=== PATIENT | female | born 1965 | race Caucasian/White ===

== ENCOUNTER 2017-02-04 23:22 | Emergency (ER) | payer OTHER ==
[~2017-02-04] VITALS: Ht 160 cm; Wt 68.0 kg
[2017-02-04] MEDS ORDERED: LEVO112T2 PO (23:34)
[2017-02-04] MEDS ORDERED: ROSU5TAB PO (23:34)
[2017-02-04] MEDS ORDERED: ONDANSETRON ODT 4 MG TAB.RAPDIS SL ONE (23:45)
[2017-02-04] MEDS ORDERED: HYDROMORPHONE 1 MG/1 ML DISP.SYRIN IM ONE (23:45)
[2017-02-04] MEDS ORDERED: LIDOCAINE HCL 1% 20 ML VIAL TP ONE (23:45)
[2017-02-05] MEDS ORDERED: ONDANSETRON ODT 4 MG TAB.RAPDIS ONE ×2 (00:05→02:10)
[2017-02-05] MEDS ORDERED: HYDROMORPHONE 2 MG/1 ML DISP.SYRIN ONE (00:05)
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
--- NOTE | 2017-02-05 01:00 | NUR ---
Cleaned wound with saline.
[2017-02-05] MEDS ORDERED: METOCLOPRAMIDE HCL 10 MG/2 ML VIAL IM ONE (01:15)
[2017-02-05] MEDS ORDERED: METOCLOPRAMIDE HCL 10 MG/2 ML VIAL ONE (01:20)
[2017-02-05] MEDS ORDERED: ONDANSETRON ODT 4 MG TAB.RAPDIS SL ONE (02:00)
--- NOTE | 2017-02-05 02:05 | NUR ---
Gave pt RX and d/c instructions, verbalized understanding.
== END 2017-02-05 02:08 | disposition home or self-care (01) ==
LOC: ER 23:27
DX: S01.01XA Laceration without foreign body of scalp, initial encounter (principal); E03.9 Hypothyroidism, unspecified; E78.5 Hyperlipidemia, unspecified; V89.2XXA Person injured in unspecified motor-vehicle accident, traffic, initial encounter; Y93.89 Activity, other specified; Y92.410 Unspecified street and highway as the place of occurrence of the external cause; Y99.8 Other external cause status
CPT/HCPCS: 12002; 96372 ×2; 99284; A4217; A4663; J1170; J2765; J3490; Q0162 ×2